=== PATIENT | female | born 1955 | race African-American/Black ===

== ENCOUNTER 2017-12-28 10:53 | Emergency (ER) | payer MEDICAID ==
[~2017-12-28] VITALS: Ht 154.9 cm; Wt 49.0 kg
[2017-12-28 10:58] VITALS: BP 106/80
== END 2017-12-28 17:24 | disposition home or self-care (01) ==
LOC: ER 10:53
DX: R05 Cough (principal); K21.9 Gastro-esophageal reflux disease without esophagitis; F17.200 Nicotine dependence, unspecified, uncomplicated; Z88.6 Allergy status to analgesic agent; Z91.041 Radiographic dye allergy status
CPT/HCPCS: 71045; 87804; 99285